=== PATIENT | female | born 1935 | race Caucasian/White ===

== ENCOUNTER 2018-10-25 18:28 | Emergency (ER) | payer MEDICARE, OTHER ==
[~2018-10-25] VITALS: Ht 165.1 cm; Wt 63.6 kg
[2018-10-25 18:42] VITALS: Ht 165.1 cm; Wt 63.6 kg
[2018-10-25] MEDS ORDERED: KEFLEX500 MG PO (18:43)
[2018-10-25] MEDS ORDERED: BENADRYL25 MG PO (19:38)
[2018-10-25 19:53] VITALS: BP 118/72
== END 2018-10-25 19:53 | disposition home or self-care (01) ==
LOC: D.ER 18:28
DX: B88.0 Other acariasis (principal); L29.9 Pruritus, unspecified

== ENCOUNTER 2019-01-17 17:31 | Emergency (ER) | payer MEDICARE, OTHER ==
[~2019-01-17] VITALS: Ht 165.1 cm; Wt 62.3 kg
[~2019-01-17 17:31] MED LIST: BENADRYL25 MG PO; KEFLEX500 MG PO
[2019-01-17 17:58] VITALS: Ht 165.1 cm; Wt 62.3 kg
[2019-01-17] MEDS ORDERED: VISTARIL25 MG PO (19:52)
[2019-01-17] MEDS ORDERED: SMZ-TMP DS 800-1 TAB PO (19:52)
[2019-01-17] MEDS ORDERED: MUPIROCIN15 GM TOPICAL (19:52)
[2019-01-17 19:59] VITALS: BP 176/79
== END 2019-01-17 19:55 | disposition home or self-care (01) ==
LOC: D.ER 17:31
DX: L29.9 Pruritus, unspecified (principal); M79.605 Pain in left leg; M79.604 Pain in right leg; E07.9 Disorder of thyroid, unspecified; I10 Essential (primary) hypertension

== ENCOUNTER 2019-02-21 10:49 | Emergency (ER) | payer MEDICARE, OTHER ==
[~2019-02-21] VITALS: Ht 165.1 cm; Wt 62.9 kg
[~2019-02-21 10:49] MED LIST changes: +MUPIROCIN15 GM TOPICAL; +SMZ-TMP DS 800-1 TAB PO; +VISTARIL25 MG PO
[2019-02-21 10:54] VITALS: Ht 165.1 cm; Wt 62.9 kg
[2019-02-21 13:00] LABS: UDS - AMPHET NEGATIVE QUAL (NEGATIVE); UDS - BARB NEGATIVE QUAL (NEGATIVE); UDS - BENZO NEGATIVE QUAL (NEGATIVE); UDS - COCAINE NEGATIVE QUAL (NEGATIVE); UDS - OPIATE NEGATIVE QUAL (NEGATIVE); UDS - PCP NEGATIVE QUAL (NEGATIVE); UDS - THC NEGATIVE QUAL (NEGATIVE)
[2019-02-21 13:08] LABS: BASOPHILS 0.3 % (0-2); EOSINOPHILS 4.7 % (0-7); HEMOGLOBIN 12.9 g/dL (12-16); IMMATURE GRANULOCYTES 0.4 % (0-5); LYMPHOCYTES 37.6 % (15-50); MCH 29.5 pg (26.0-34.0); MCHC 31.5 g/dL (31.0-37.0); MCV 93.8 fL (80.0-100.0); MEAN PLATELET VOLUME 8.8 fL (7.4-10.4); MONOCYTES 9.6 % (2-11); NEUTROPHILS 47.4 % (40-80); PLATELET COUNT 287 10x3/uL (130-400); RBC 4.37 10x6/uL (4.00-5.40); WBC 7.5 10x3/uL (4.8-10.8)
[2019-02-21 13:08] LABS: APPEARANCE HAZY (CLEAR); BILIRUBIN NEGATIVE (NEGATIVE); COLOR YELLOW (YELLOW); GLUCOSE NEGATIVE (NEGATIVE); KETONE NEGATIVE (NEGATIVE); NITRITE NEGATIVE (NEGATIVE); PROTEIN NEGATIVE (NEGATIVE); SPECIFIC GRAVITY 1.015 (1.005-1.020); UROBILINOGEN NORMAL (NORMAL)
[2019-02-21 13:09] LABS: ANION GAP 9.2 mmol/L (8-16); CALCIUM 8.7 mg/dL (8.5-10.1); CARBON DIOXIDE 29.7 mmol/L (21.0-32.0); CREATININE - SERUM 0.8 mg/dL (0.6-1.3); POTASSIUM - SERUM 3.9 mmol/L (3.5-5.1)
[2019-02-21 13:09] LABS: BACTERIA FEW /hpf (NEGATIVE); EPITHELIAL CELLS 0-5 /hpf (0-5); MUCUS <1+ /lpf (NONE SEEN); RED CELLS - URINE 0-5 /hpf (0-5); WHITE CELLS - URINE OCC /hpf (NEGATIVE)
[2019-02-21 13:14] LABS: ALBUMIN 2.9 g/dL (3.4-5.0); BILIRUBIN - TOTAL 0.33 mg/dL (0.2-1.3); MAGNESIUM - SERUM 2.1 mg/dL (1.8-2.4); PROTEIN - SERUM 6.8 g/dL (6.4-8.2)
[2019-02-21] MEDS ORDERED: DIFLUCAN150 MG PO (15:11)
[2019-02-21] MEDS ORDERED: METRONIDAZOLE70 GM VG (15:13)
[2019-02-21 15:45] VITALS: BP 130/71
== END 2019-02-21 15:45 | disposition home or self-care (01) ==
LOC: D.ER 10:49
PROVIDERS: Emergency Medicine
DX: F42.4 Excoriation (skin-picking) disorder (principal); G30.1 Alzheimer's disease with late onset; F02.80 Dementia in other diseases classified elsewhere, unspecified severity, without behavioral disturbance, psychotic disturbance, mood disturbance, and anxiety; B37.3 Candidiasis of vulva and vagina

== ENCOUNTER 2019-11-26 12:10 | Emergency (ER) | payer MEDICARE, OTHER ==
[~2019-11-26] VITALS: Ht 165.1 cm; Wt 77.3 kg
[~2019-11-26 12:10] MED LIST changes: +DIFLUCAN150 MG PO; +METRONIDAZOLE70 GM VG
[2019-11-26 12:12] VITALS: Ht 165.1 cm; Wt 77.3 kg
[2019-11-26 13:04] LABS: ANION GAP 8.6 mmol/L (8-16); CARBON DIOXIDE 29.3 mmol/L (21.0-32.0); POTASSIUM - SERUM 3.9 mmol/L (3.5-5.1)
[2019-11-26 13:06] LABS: BILIRUBIN NEGATIVE (NEGATIVE); KETONE NEGATIVE (NEGATIVE); NITRITE NEGATIVE (NEGATIVE); UROBILINOGEN NORMAL mg/dL (< 2)
[2019-11-26 13:07] LABS: BASOPHILS 0.3 % (0-2); EOSINOPHILS 3.1 % (0-7); IMMATURE GRANULOCYTES 0.4 % (0-5); LYMPHOCYTES 24.8 % (15-50); MCHC 31.7 g/dL (31.0-37.0); MCV 91.3 fL (80.0-100.0); MEAN PLATELET VOLUME 8.9 fL (7.4-10.4); NEUTROPHILS 63.4 % (40-80); PLATELET COUNT 244 10x3/uL (130-400); RBC 4.49 10x6/uL (4.00-5.40); RDW 14.1 % (11.5-14.5); WBC 11.5 10x3/uL (4.8-10.8)
[2019-11-26 13:10] LABS: ALBUMIN 3.1 g/dL (3.4-5.0); BILIRUBIN - TOTAL 0.32 mg/dL (0.2-1.3)
[2019-11-26] MEDS ORDERED: NORFLEX100 MG PO (14:15)
[2019-11-26] MEDS ORDERED: OMEPRAZOLE20 M1 PO (14:15)
[2019-11-26] MEDS ORDERED: MOBIC7.5 MG PO (14:15)
[2019-11-26] MEDS ORDERED: MUPIROCIN15 GM TOPICAL (14:20)
[2019-11-26 16:00] VITALS: BP 142/71
== END 2019-11-26 16:01 | disposition home or self-care (01) ==
LOC: D.ER 12:10
PROVIDERS: Family Medicine
DX: M54.9 Dorsalgia, unspecified (principal); M48.56XA Collapsed vertebra, not elsewhere classified, lumbar region, initial encounter for fracture; S31.109A Unspecified open wound of abdominal wall, unspecified quadrant without penetration into peritoneal cavity, initial encounter; X58.XXXA Exposure to other specified factors, initial encounter